=== PATIENT | female | born 1985 ===

== ENCOUNTER 2024-03-16 22:58 | Emergency (ER) | payer MEDICAID, SELFPAY ==
[2024-03-16 23:02] VITALS: BP 142/89; PULSE 92; RESP 20; TEMP 36.6; O2SAT 99
[2024-03-16 23:24] LABS: Abs Immature Grans 0.01 10^3/uL (0.0-0.06); Absolute Basophil Count 0.06 10^3/uL (0.0-0.2); Absolute Eosinophil Count 0.09 10^3/uL (0.0-0.7); Absolute Lymphocyte Count 2.77 10^3/uL (1.2-3.4); Absolute Monocyte Count 0.63 10^3/uL (0.1-0.8); Basophils % 0.8 %; Eosinophils % 1.1 %; HCT 38.2 % (36.0-46.0); Immature Grans % 0.1 %; Lymphocytes % 35.2 %; MCH 32.9 pg (27.0-33.0); MCV 97 fL (80-95); MPV 9.7 fL (8.0-11.0); Neutrophils % 54.8 %; Platelet Count 337 10^3/uL (130-400); RBC 3.95 10^6/uL (3.93-5.22); RDW 11.5 % (11.7-14.6); RDW-SD 41.3 fL; WBC 7.86 10^3/uL (4.4-10.8)
--- NOTE | 2024-03-16 23:28 | ED.GENADUL_ITS ---
Discharge Plan Disposition Patient Disposition: Transfer-Acute Inpatient Care Specific Acute Inpt Facility: [facility] Condition: Serious Discharge Details Clinical Impression: , Abdominal pain, Vaginal bleeding Primary Care Provider: Jane,Local ED Provider: Carmen Jha Home Meds and New Rx's Prescriptions: No Action No Known Home Meds [facility] General Mode of arrival: ambulatory . Date/Time Provider Initiated Documentation: 03/16/24 22:59 . Limitations to Documentation: no limitations . Information obtained by: patient . HPI Narrative: 38yo previously healthy female, no prior abdominal surgeries, sexually active with male partner and not using contraception, LMP two weeks prior, presenting for acute lower abdominal pain. Started about an hour and a half ago, is severe, worst in the LLQ and radiates to her left lower back. Dark black vaginal spotting for the past 2-3 days, no other vaginal discharge. No fevers, chills, rash, nausea, vomiting, dysuria, hematuria, syncope, chest pain, shortness of breath, or other concerns. Related Data Home Medications ?Medication ?Instructions ?Recorded ?Confirmed Unknown [No Known Home Meds] 03/16/24 03/16/24 Allergies Allergy/AdvReac Type Severity Reaction Status Date / Time Penicillins Allergy Severe Hives Verified 03/16/24 23:07 omeprazole Allergy Intermediate Hives Verified 03/16/24 23:07 latex AdvReac Mild Skin Rash Verified 03/16/24 23:07 General Stated Complaint: Abd Prob FRANCISCO: 3 Review of Systems Narrative: see HPI Exam Narrative Exam Narrative: General: Alert, well appearing, well nourished Head: Normocephalic, atraumatic Neck: Trachea midline, ?Neck supple. ENT: ?MMM.? No oropharygeal lesions or exudate. Cardiac: ?RRR, no murmurs appreciated Resp: No respiratory distress. CTAB. Abd: ?Soft, non-distended. TTP of LLQ and suprapubic region, rebound tenderness. No guarding. : ?+ suprapubic tenderness. No CVA tenderness. Extremities: ?No deformities.? No peripheral edema. Neurologic: GCS 15. ? Moves all extremities freely against gravity Course Vital Signs Vital signs: Vital Signs Temperature 36.6 C 03/16/24 23:02 Pulse 92 H 03/16/24 23:02 Respiratory Rate 20 03/16/24 23:02 Blood Pressure 142/89 H 03/16/24 23:02 Pulse Oximetry 99 03/16/24 23:02 Temperature 36.6 C 03/16/24 23:02 Temperature Source Oral 03/16/24 23:02 Pulse 92 H 03/16/24 23:02 Respiratory Rate 20 03/16/24 23:02 Respiratory Effort Normal, Non-Labored 03/16/24 23:05 Blood Pressure 142/89 H 03/16/24 23:02 Blood Pressure Position Sitting 03/16/24 23:02 Pulse Oximetry 99 03/16/24 23:02 Oxygen Delivery Method Room Air 03/16/24 23:02 Oxygen Flow Rate 0 03/16/24 23:02 Pain Level 10 03/16/24 23:02 Lab/Test Results Lab/Test Results: Laboratory Tests Range/Units 03/16/24 23:21 WBC (4.4-10.8) 10^3/uL 7.86 RBC (3.93-5.22) 10^6/uL 3.95 Hgb (11.2-15.7) g/dL 13.0 Hct (36.0-46.0) % 38.2 MCV (80-95) fL 97 H MCH (27.0-33.0) pg 32.9 MCHC (32.0-36.0) % 34.0 RDW (11.7-14.6) % 11.5 L Plt Count (130-400) 10^3/uL 337 MPV (8.0-11.0) fL 9.7 Immature Gran % % 0.1 Neutrophils % % 54.8 Lymphocytes % % 35.2 Monocytes % % 8.0 Eosinophils % % 1.1 Basophils % % 0.8 Nucleated RBC % (0.0-0.3) % 0.0 Absolute Neutrophils (1.2-6.7) 10^3/uL 4.30 Absolute Lymphocytes (1.2-3.4) 10^3/uL 2.77 Absolute Monocytes (0.1-0.8) 10^3/uL 0.63 Absolute Eosinophils (0.0-0.7) 10^3/uL 0.09 Absolute Basophils (0.0-0.2) 10^3/uL 0.06 Medical Decision Making 38yo previously healthy female, no prior abdominal surgeries, sexually active with male partner and not using contraception, LMP two weeks prior, presenting for severe lower abdominal pain for about 90 minutes, worst LLQ radiating to low back. Associated dark vaginal spotting. Hypertesnive on arrival and slightly tachcyardiac to 92, vital signs otherwise reassuring. TTP of LLQ with rebound tenderness, no guarding. Intrabdominal vs intrapelvic/ovarian/-related pathology. Unable to get ultrasound overnight; will evaluate initially with labs and test. If negative will start with CT; ultimately may need transfer for ultrasound. Morphine/tylenol/toradol/zofran for symptoms. Labs reviewed as below, CBC reassuring with no leukocytosis or anemia, CMP with mild hypokalemia, UA negative for infection, + with serum bHcg 1512. Blood type A-, rhogam ordered. HR remains in 80's-90's. Attempted to call in Patient Education [employer] for exam without success. [place] [facility] and unable to make contact[place] Called [facility] transfer center; patient accepted ED to ED under Dr. Soto. Lab Data Lab results reviewed: Yes I reviewed the patient's lab results. Labs: Laboratory Tests Range/Units 03/16/24 03/16/24 03/16/24 23:21 23:32 23:45 WBC (4.4-10.8) 10^3/uL 7.86 RBC (3.93-5.22) 10^6/uL 3.95 Hgb (11.2-15.7) g/dL 13.0 Hct (36.0-46.0) % 38.2 MCV (80-95) fL 97 H MCH (27.0-33.0) pg 32.9 MCHC (32.0-36.0) % 34.0 RDW (11.7-14.6) % 11.5 L Plt Count (130-400) 10^3/uL 337 MPV (8.0-11.0) fL 9.7 Immature Gran % % 0.1 Neutrophils % % 54.8 Lymphocytes % % 35.2 Monocytes % % 8.0 Eosinophils % % 1.1 Basophils % % 0.8 Nucleated RBC % (0.0-0.3) % 0.0 Absolute Neutrophils (1.2-6.7) 10^3/uL 4.30 Absolute Lymphocytes (1.2-3.4) 10^3/uL 2.77 Absolute Monocytes (0.1-0.8) 10^3/uL 0.63 Absolute Eosinophils (0.0-0.7) 10^3/uL 0.09 Absolute Basophils (0.0-0.2) 10^3/uL 0.06 Sodium (136-145) mmol/L 139 Potassium (3.5-5.1) mmol/L 3.4 L Chloride (98-107) mmol/L 100 Carbon Dioxide (21.0-32.0) mmol/L 27.6 Anion Gap (3-11) mmol/L 11.4 H BUN (7-18) mg/dL 11 Creatinine (0.55-1.02) mg/dL 0.9 Est GFR (CKD-EPI 2020) (mL/min/1.73m2) 84.44 Glucose (74-106) mg/dL 102 Calcium (8.5-10.1) mg/dL 8.8 Total Bilirubin (0.2-1.0) mg/dL 0.55 AST (15-37) U/L 21 ALT (14-59) U/L 42 Alkaline Phosphatase (46-116) U/L 54 Total Protein (6.4-8.2) g/dL 7.4 Albumin (3.4-5.0) g/dL 3.8 Beta HCG, Quant (1-3) mIU/mL 1512 H Urine Color (Yellow) Yellow Urine Clarity (Clear) Clear Urine pH (5-8) 6.0 Ur Specific Delta (1.005-1.025) >= 1.030 H Urine Protein (Neg-Trace) mg/dL Negative Urine Ketones (Negative) mg/dL Negative Urine Blood (Negative) Large H Urine Nitrite (Negative) Negative Urine Bilirubin (Negative) Negative Urine Urobilinogen (Up to 0.2) mg/dL 0.2 Ur Leukocyte Esterase (Negative) Negative Urine RBC (0-2) HPF >50 H Urine WBC (0-5) HPF Negative Ur Epithelial Cells (Negative) HPF Few Urine Crystals (Negative) HPF Negative Urine Bacteria (Negative) HPF Few Urine Casts (Negative) LPF Negative Urine Mucus (Negative) Negative Ur Culture Indicated? No Urine Glucose (Negative) mg/dL Negative ABO/Rh A Negative Antibody Screen NEGATIVE Quality:SDOH Health Related Social Needs: No Data to Display PFSH All Active Problems (Updated 03/17/24 @ 01:14 by Carmen Jha MD) Vaginal bleeding (Acute) Abdominal pain (Acute) (Acute) Social History Smoking/Tobacco Use Status: Current every day Tobacco Type: e-cigarettes Smoking risk assessment performed?: Yes Alcohol Intake: current Alcohol Intake frequency: a few times a week Alcohol type: hard liquor Drug use: Never Substance use type: does not use
[2024-03-16] MEDS: ACETAMINOPHEN 1,000 MG/100 ML BTL 400 MG IVPB (23:38)
[2024-03-16] MEDS: Ketorolac 15 MG/ML VIAL IVP (23:40)
[2024-03-16] MEDS: Ondansetron 4 MG/2 ML VIAL IVP (23:41)
[2024-03-17 00:07] LABS: Bilirubin Negative (Negative); Blood Large (Negative); Clarity Clear (Clear); Glucose Negative (Negative); Ketones Negative (Negative); Leukocyte Esterase Negative (Negative); Nitrite Negative (Negative); Specific Gravity >= 1.030 (1.005-1.025); Urobilinogen 0.2 mg/dL (Up to 0.2)
[2024-03-17 00:08] LABS: ALT 42 U/L (14-59); AST 21 U/L (15-37); Albumin 3.8 g/dL (3.4-5.0); Alkaline Phosphatase 54 U/L (46-116); Anion Gap 11.4 mmol/L (3-11); BUN 11 mg/dL (7-18); Bilirubin, Total 0.55 mg/dL (0.2-1.0); CO2 27.6 mmol/L (21.0-32.0); CREATININE 0.9 mg/dL (0.55-1.02); Calcium 8.8 mg/dL (8.5-10.1); Chloride 100 mmol/L (98-107); Estimated GFR 84.44 (mL/min/1.73m2); Glucose 102 mg/dL (74-106); Potassium 3.4 mmol/L (3.5-5.1); Sodium 139 mmol/L (136-145); Total Protein 7.4 g/dL (6.4-8.2)
[2024-03-17] MEDS: MORPHine 4 MG/ML SYR IVP ×2 (00:08→00:28)
[2024-03-17 00:09] LABS: Bacteria Few HPF (Negative); C & S Indicated? No; Casts Negative LPF (Negative); Crystals Negative HPF (Negative); Epithelial Cells Few HPF (Negative); Mucus Negative (Negative); RBC >50 HPF (0-2); WBC Negative HPF (0-5)
[2024-03-17 00:10] LABS: HCG Quant, Pregnancy 1512 mIU/mL (1-3)
[2024-03-17] MEDS: Normal Saline 1,000 ML 125 ML IV (00:29)
[2024-03-17 01:20] VITALS: BP 114/77; PULSE 66; RESP 16; TEMP 36.7; O2SAT 97
[2024-03-17 01:35] VITALS: BP 122/85; PULSE 86; RESP 16; TEMP 36.7; O2SAT 99
[2024-03-17] MEDS: Ondansetron 4 MG/2 ML VIAL IVP (01:59)
[2024-03-17] MEDS: MORPHine 10 MG/ML VIAL 6 MG IVP (01:59)
[2024-03-17 02:15] VITALS: BP 122/85; PULSE 86; RESP 16; TEMP 36.7; O2SAT 99
== END 2024-03-17 02:10 | disposition short-term general hospital (02) ==
PROVIDERS: Emergency Provider Student in an Organized Health Care Education/Training Program
DX: O20.8 Other hemorrhage in early pregnancy (principal); O26.891 Other specified pregnancy related conditions, first trimester; R10.32 Left lower quadrant pain; E87.6 Hypokalemia; O99.331 Smoking (tobacco) complicating pregnancy, first trimester; F17.210 Nicotine dependence, cigarettes, uncomplicated
CPT/HCPCS: 36415; 80053; 86850; 86900; 86901; 90384; 96374; 96375; 96376; 99285; 81003; 81015; 84702; 85025; J0131; J1885; J2270; J2405